=== PATIENT | male | born 1995 | race African-American/Black ===

== ENCOUNTER 2025-01-16 18:54 | Emergency (ER) | payer BC ==
[~2025-01-16] VITALS: Ht 182.9 cm; Wt 81.8 kg
[2025-01-16 18:55] VITALS: TEMP 97
--- NOTE | 2025-01-16 19:20 | RADIOLOGY REPORT ---
Clinical History Shoulder Pain Comparison None Without Contrast JERI LEON, [id number] TECHNIQUE: 2 views of the right shoulder. FINDINGS: Right anterior shoulder dislocation. The acromioclavicular joint is unremarkable. The soft tissues are unremarkable. IMPRESSION: Right anterior shoulder dislocation This report was electronically signed by Vidal Stevenson MD on 01/16/2025 7:17:37 PM.
[2025-01-16 19:38] VITALS: BP 129/89; PULSE 81; RESP 15; O2SAT 100
--- NOTE | 2025-01-16 19:51 | Physician Documentation ---
History of Present Illness ~ Chief Complaint: Shoulder pain Stated Complaint: ERNIE IS OUT Time Seen by MD: 19:25 OK to notify your PCP?: Yes Source: patient Mode of Arrival: POV Exam Limitations: no limitations HPI This is a 29-year-old male who comes in complaining of possible right shoulder dislocation. The patient was states he has had this so it dislocated in the past. He was playing sports when it happened. States it is not able to move his arm secondary to the pain. Medication Reconciliation Allergies: Coded Allergies: No Known Allergies (Unverified , 01/16/25) Physical Exam Vital Signs: Temperature: 97.0, Source: Oral, Heart Rate: 81, Respiratory Rate: 15, BP: 129/89, Pulse Oximetry: 100, Weight: 81.820 Oxygen Flow Rate: 0 Pulse Oximetry Reflects: adequate oxygenation General Appearance: alert, WD/WN, no apparent distress Shoulder To inspection of the right shoulder obvious deformity. There is step-off over the lateral aspect of the AC joint. Decreased range of motion of the right shoulder secondary to probable dislocation. Bilateral radial pulses 2+ and equal. Bilateral adaptive physical education teacher 5/5. Cap refill less than 2 seconds and brisk in the digits of the right hand. Procedures Joint Reduction Joint Reduction : Reduction By: myself Conscious Sedation: No Reduction Attempts: 1 Pre-Procedure NV Exam: within normal limits Post-Procedure NV Exam: within normal limits Post Reduction Film: joint reduced Tolerated Procedure Well?: yes, no complications Procedure Note I had the patient lie in his stomach with his right arm hanging off the end of the gurney. I performed scapular manipulation and reduce the shoulder with minimal force or effort. The patient tolerated procedure well. He was placed in an arm sling. Progress Results/Orders Reviewed/noted all lab results: Yes Results/Orders Orders - DARLENE BEY Ibuprofen Oral Suspension (Motrin Oral S (01/16/25 19:45) Shoulder Ltd 1 View Only (01/16/25 19:28) Vital Signs 01/16/25 01/16/25 18:55 19:38 Temp 97.0 Pulse 102 81 Resp 20 15 B/P (MAP) 123/83 129/89 (102) Pulse Ox 98 100 O2 Flow Rate 0 EKG/XRAY/CT/US/VASC/MRI Bone/Soft Tissue X-Ray (Ext.) : Interpreted By: self Additional Comment Pre reduction x-ray right shoulder two view interpreted by me: Anterior glenohumeral joint dislocation. Soft tissues unremarkable. No fracture. Postreduction right shoulder one view interpreted by me: Reduction of the previous anterior glenohumeral joint dislocation. Once again no fracture. Once again soft tissues unremarkable. Medical Decision Making Findings I was able to reduce the shoulder with scapular manipulation without the use of pain medication or conscious sedation. The patient tolerated the procedure well. Right sling was provided and liquid ibuprofen and the patient was requested as he has a hard time swallowing pills. He was instructed not to perform any large movements of the right shoulder in the next 72 hours. Continue with the ibuprofen for pain. Cold compresses to the area. He was a sling as needed. Return as needed. Additional Comments Right shoulder dislocation. Departure Disposition: 01 HOME / SELF CARE / HOMELESS Impression: Primary Impression: Dislocation of right shoulder joint Condition: Stable Discharge Instructions: Shoulder Dislocation Additional Instructions: He was ascending the rest of the arm for the next few days. No large movements of the shoulder for the next few days as well. Continue with the ibuprofen for pain and apply frequent cold compresses to the area to reduce swelling and pain. Follow up with the primary care physician and I will give you contact information for our on-call orthopedic surgeon. Return to the ER for any worsening or concerning symptoms. Referrals: NO PRIMARY CARE PROVIDER (PCP) CARLITOS COPE Jr., MD Signature Scribe Signature: No scribe Attestation: The note accurately reflects work and decisions made by me.Darlene LATIF 01/16/25 19:50 DARLENE BEY Jan 16, 2025 19:51
--- NOTE | 2025-01-16 20:12 | RADIOLOGY REPORT ---
Clinical History Shoulder Pain POST REDUCTION Comparison SHOULDER on 01/16/2025, 2 images. Without Contrast JERI LEON, [id number] Comparison: 01/16/25 and 7:05 PM TECHNIQUE: Single AP view of the right shoulder FINDINGS: Status post successful reduction of the right shoulder dislocation. No evidence of acute displaced. The joints are unremarkable.No significant joint effusion. The soft tissues are unremarkable. IMPRESSION: Status post successful reduction of right shoulder dislocation This report was electronically signed by Vidal Stevenson MD on 01/16/2025 8:09:55 PM.
[2025-01-16] MEDS: ibuprofen 100 MG/5 ML oral susp PO ONE (20:27)
== END 2025-01-16 20:32 | disposition home or self-care (01) ==
LOC: ER 18:56
DX: S43.004A Unspecified dislocation of right shoulder joint, initial encounter (principal); X58.XXXA Exposure to other specified factors, initial encounter; Y93.89 Activity, other specified; Y92.89 Other specified places as the place of occurrence of the external cause; Y99.8 Other external cause status
CPT/HCPCS: 23650; 73020; 73030; 99284; A4565